=== PATIENT | female | born 1960 | race African-American/Black ===

== ENCOUNTER 2018-01-17 05:36 | Day surgery (SDC) | payer BC, OTHER ==
[~2018-01-17] VITALS: Ht 165.1 cm; Wt 79.4 kg
--- NOTE | ~2018-01-17 | O ---
[facility] [place] [address] OPERATIVE REPORT Name: JESSY CRUZ Room #: DEP [facility].#: [id number] Admission: 01/17/18 Attend Phys: Sivakumar Rabago MD Discharge: 01/18/18 Date of : 62 Report #: [id number] THIS REPORT FOR: //name// CC: Lanette Rabago DATE OF SERVICE: 01/17/[address] Sivakumar Rabago and Dr. Lanette Rvier. PREOPERATIVE DIAGNOSES: Cholelithiasis, cholecystitis, biliary colic. POSTOPERATIVE DIAGNOSES: Cholelithiasis, cholecystitis, biliary colic. PROCEDURE: Laparoscopic cholecystectomy. SURGEON: Sivakumar Rabago MD BILINGUAL PATIENT SUPPORT CASEWORKER: Marlee Garcia RN. ANESTHESIA: General. DESCRIPTION OF PROCEDURE: The patient was brought to the operating room and placed on operative table in the supine position. Sequential compression devices were in place for DVT prophylaxis. The patient received an appropriate preoperative dose of antibiotics. The abdomen was then prepped and draped in a sterile fashion after undergoing a general endotracheal anesthesia. Skin and subcutaneous tissue around the umbilicus was then infiltrated with 0.5% Marcaine. Infraumbilical transverse skin incision was then performed using #11 scalpel blade. Hemostasis obtained using electrocautery. Dissection was carried down through subcutaneous tissue to the fascia, which was then grasped between 2 clamps and incised with curved Lee scissors. The peritoneum was entered and a pursestring suture of 0 Vicryl was then placed in the fascia. A 12 mm disposable Tracy port was inserted through the opening and held into place with the pursestring suture. Pneumoperitoneum was obtained to a level of 10-15 mmHg. Laparoscope was inserted through this port and exploration was performed, which revealed a thickened dilated gallbladder. There were no other intra-abdominal abnormalities. Two lateral 5 mm Surgiports as well as an upper midline 11 mm Surgiport were all inserted under direct visualization after infiltration with 0.5% Marcaine. The gallbladder was then grasped and retracted superiorly and the cystic duct and artery were carefully dissected free. The cystic common bile duct junction was clearly identified. The cystic duct was then triply clipped on the common bile duct side and doubly clipped on the gallbladder side and divided with the scissors. The cystic artery was then dissected free and doubly clipped on each side and divided with the scissors. [address] [address] OPERATIVE REPORT Name: JESSY CRUZ Room #: [place] [facility] [place]#: [id number] Admission: 01/17/18 Attend Phys: Sivakumar Rabago MD Discharge: 01/18/18 Date of : 62 Report #: [id number] The gallbladder was then dissected free from the bed using the hook electrocautery. Prior to completing the dissection, the gallbladder was retracted superiorly and the bed inspected for hemostasis. There was a vessel running along the surface of the gallbladder bed and this was doubly clipped for further hemostasis. Gallbladder was then transected and brought out through the periumbilical port and sent as specimen to pathology. The port was then returned to the abdomen. The area was then copiously irrigated with warm saline solution, which was suctioned free and hemostasis was checked and found to be intact. The ports were then all removed under direct visualization, hemostasis intact at each port site. Pneumoperitoneum was released and the periumbilical port was then also removed under direct visualization, hemostasis intact at that port site as well. The periumbilical fascia was then closed using the 0 Vicryl pursestring suture. The upper midline fascia was then closed using a lhcmsa-ls-melzu 0 Vicryl suture. Skin was then closed using interrupted vertical mattress 5-0 nylon sutures and the wound was dressed with Band-Aids. The patient was then awakened from the general endotracheal anesthesia, extubated, and taken to recovery room in good condition. Estimated blood loss was approximately 5 mL and the patient tolerated the procedure well. All sponge, lap and instrument counts correct x 2. <ELECTRONICALLY SIGNED> By: Sivakumar Rabago MD 01/25/18 1625 1612 1705 Sivakumar Rabago MD /nt
--- NOTE | ~2018-01-17 | PATH ---
[facility] [address] [place] [address] PATHOLOGY RPT PROCEDURE Name: DANIELLE CRUZ Room #: DEP [facility] M.R.#: [id number] Admission: 01/17/18 Date of : 62 Discharge: 01/18/18 Report #: [id number] Path Case #: [id number] [facility] Accession Number: [id number] . 01 Material submitted: . GALLBLADDER . 01 Clinician provided ICD-10: y . 01 Clinical history: . Gallstones . 02 Diagnosis: Gallbladder, cholecystectomy: - Mild chronic cholecystitis. - Cholelithiasis. (IUV:swathi; 01/21/2018) QMS/01/21/2018 . 02 Electronically signed: . Lorri Agarwal MD, Pathologist NPI- [id number] . 01 Gross description: . The specimen is received in formalin, labeled "Danielle Syeda, gallbladder". Received is an intact gallbladder measuring 9.3 x 3.4 x 2.3 cm displaying pink-anna to adipose covered serosal surfaces. Opening the gallbladder reveals a velvety, bile-stained mucosa with the gallbladder wall thickness of 0.1 cm. Calculi are present displaying a brown and multifaceted appearance, and no masses or lesions are noted grossly. Smoking Tobacco Packing Machine Hand sections from the cystic neck, body, and fundus of the gallbladder are submitted in cassette A1. (CAA; 01/18/2018) QAC/QAC . 02 Pathologist provided ICD-10: K80.10 . 02 CPT . 409082 Performed at: [address], [place] [id number] MD Acosta Cuevas MD Phone: [phone] Performed at: [address] [address] PATHOLOGY RPT PROCEDURE Name: ADE CRUZKEMAL Christina Room #: DEP [facility] [place] Rolly#: [id number] Admission: 01/17/18 Date of : 62 Discharge: 01/18/18 Report #: [id number] Path Case #: [id number] [address] [place] [id number] MD Lorri Agarwal MD Phone: [phone]
--- NOTE | ~2018-01-17 | EKG ---
[address] [address] ELECTROCARDIOGRAM REPORT Name: JESSY CRUZ Room #: 456-P [facility]#: [id number] Admission: 01/17/18 Attend Phys: Sivakumar Rabago MD Discharge: Date of : 62 Report #: [id number] THIS REPORT FOR: //name// [facility] Test Date: 2018-01-17 Test Time: 13:59:42 Pat Name: JESSY CRUZ Department: Room: 150 16 Gender: F Dope Pourer: MEREDITH : 1960 Requested By: Sivakumar Rabago Order Number: [id number] MD: Mehdi Leos Measurements Intervals [place] Rate: 77 P: 56 AK: 127 QRS: 34 QRSD: 88 T: 31 QT: 352 QTc: 399 Interpretive Statements Sinus rhythm Normal tracing No previous ECG available for comparison Electronically Signed On 01-18-2018 7:43:26 CDT by Mehdi Leos [email or web address] <ELECTRONICALLY SIGNED> By: Mehdi Leos MD, [facility] 01/18/18 0743 1359 1359 Mehdi Leos MD, FACC /EPI
[~2018-01-17 05:36] MED LIST: GLUCOPHAGE XR500 MG PO; LISINOPRIL-HCT1 EAC2 PO; METHIMAZOLE5 MG PO
[2018-01-17 13:54] LABS: CALCIUM 8.7 mg/dL (8.5-10.1); CREATININE 0.8 mg/dL (0.6-1.0); POTASSIUM 3.5 mmol/L (3.5-5.1)
[2018-01-17 13:57] VITALS: BP 148/91
[2018-01-17] MEDS ORDERED: HYDROCODONE-AP1 EAC6 PO (14:56)
[2018-01-17 17:30] VITALS: BP 120/75
[2018-01-17 20:56] VITALS: BP 117/70
[2018-01-17 23:50] VITALS: BP 119/70
[2018-01-18 03:26] VITALS: BP 116/74
[2018-01-18 07:27] VITALS: BP 110/74
[2018-01-18 08:00] VITALS: BP 102/71; BP 110/74
== END 2018-01-18 13:31 | disposition home or self-care (01) ==
LOC: OR 05:36 → TBA 05:36 → OR 13:33 → 4W 18:13 → ENTRNSPT 01-18 13:23 → EDTRNSPTSTS 01-18 13:25 → OR 01-18 13:31
PROVIDERS: Surgery
DX: K80.60 Calculus of gallbladder and bile duct with cholecystitis, unspecified, without obstruction (principal); I10 Essential (primary) hypertension; E11.9 Type 2 diabetes mellitus without complications; E03.9 Hypothyroidism, unspecified; Z79.891 Long term (current) use of opiate analgesic; Z79.899 Other long term (current) drug therapy
CPT/HCPCS: 10047; 50010; 50101; 50411; 50555; 50558; 51474; 51489; 52266; 53314; 56462; 56524; 56528; 62110; 62900; 70005

== ENCOUNTER → 2020-12-03 | Outpatient (CLI) | payer OTHER ==
[~2020-12-03] MED LIST changes: +HYDROCODONE-AP1 EAC6 PO
== END ==
LOC: CAT 09:57
PROVIDERS: ATTEND Family Medicine
DX: Z13.6 Encounter for screening for cardiovascular disorders (principal); I25.10 Atherosclerotic heart disease of native coronary artery without angina pectoris; E78.00 Pure hypercholesterolemia, unspecified